=== PATIENT | male | born 1995 | race Caucasian/White ===

== ENCOUNTER 2016-08-12 14:57 | Emergency (ER) | payer OTHER ==
[~2016-08-12] VITALS: Ht 193 cm; Wt 117.9 kg
[2016-08-12 15:24] LABS: BASO % 0.6 % (0.0-1.0); EOS % 0.4 % (1.0-4.0); HEMATOCRIT 44.8 % (42.0-52.0); HEMOGLOBIN 15.3 g/dl (14.0-18.0); LYMPH # 1.6 10*3/uL (1.3-4.4); LYMPH % 30.8 % (27.0-41.0); MEAN CELL VOLUME 83.7 fl (80.0-94.0); MEAN CORPUSCULAR HGB 28.6 pg (27.0-31.0); MEAN CORPUSCULAR HGB CONC 34.2 g/dl (33.0-37.0); MEAN PLATELET VOLUME 10.2 fl (9.6-12.3); MONO # 0.5 10*3/uL (0.1-1.0); MONO % 8.7 % (3.0-9.0); NEUT # 3.1 10*3/uL (2.3-7.9); NEUT % 59.3 % (47.0-73.0); PLATELET COUNT AUTOMATED 293 10*3/uL (130-400); RED BLOOD COUNT 5.35 10*6/uL (4.50-5.90); RED CELL DISTRI WIDTH 12.1 % (0-14.5); WHITE BLOOD COUNT 5.2 10*3/uL (4.8-10.8)
[2016-08-12 15:40] LABS: ALBUMIN 3.9 gm/dl (3.1-4.5); ALKALINE PHOSPHATASE 105 U/L (45-117); BILIRUBIN, TOTAL 0.6 mg/dl (0.2-1.0); BUN 13 mg/dl (7-24); CARBON DIOXIDE 23 mmol/L (21-32); CHLORIDE 104 mmol/L (98-107); EST GLOM FILT AFRICAN AMERICAN > 60 ml/min; GLUCOSE 100 mg/dL (65-99); POTASSIUM 3.6 mmol/L (3.5-5.1); SGOT/AST 30 IU/L (3-35); SGPT/ALT 67 U/L (12-78); SODIUM 138 mmol/L (136-145); TOTAL PROTEIN 8.5 gm/dL (6.4-8.2)
[2016-08-12 15:42] LABS: TROPONIN I < 0.015 ng/ml (<0.045)
[2016-08-12] MEDS ORDERED: FLONASE ALLERG9.9 ML NAS (16:18)
[2016-08-12] MEDS ORDERED: PREDNISONE10 MG PO (16:18)
[2016-08-12] MEDS ORDERED: CLARITIN10 MG PO (16:18)
[2016-08-12] MEDS ORDERED: MECLIZINE HCL25 M2 PO (16:19)
== END 2016-08-12 16:26 | disposition home or self-care (01) ==
LOC: ED 14:57
PROVIDERS: Nurse Practitioner Family
DX: B34.9 Viral infection, unspecified (principal); R03.0 Elevated blood-pressure reading, without diagnosis of hypertension; R42 Dizziness and giddiness; R51 Headache; M54.2 Cervicalgia; H92.03 Otalgia, bilateral